=== PATIENT | female | born 1975 | race Caucasian/White ===

== ENCOUNTER → 2023-01-19 | Outpatient (CLI) | payer BC ==
--- NOTE | 2023-01-19 13:50 | USB ---
Reason for Exam: Clinical finding. Risk Values: Danae 5 year model risk: 0.6%. NCI Lifetime model risk: 6.3%. Technique: Method: Whole Breast Handheld. Findings: The whole breast of the left breast, the axilla of the left breast and the retroareolar of the left breast were scanned. There is a complex cyst present at the palpable abnormality 9 cm nipple approximately 3:00 position. This measures 3.7 x 1.9 x 3.7 cm. Multiple internal echoes which are mobile under real-time observation are observed. This does come in close approximation with the implant. However, direct communication could not be visualized. Real-time observation was performed. This does not appear to be in the from the implant. If closer evaluation is required MRI could evaluate. Due to the complex nature and the recent appearance of this structure, consider cyst aspiration for additional evaluation. Overall Assessment: Suspicious, BI-RAD 4 Management: Aspiration of the left breast. A clinical breast exam by your physician is recommended on an annual basis and results should be correlated with mammographic findings. This exam should not preclude additional follow-up of suspicious palpable abnormalities. Results were given to the patient verbally at the time of exam. Electronically signed and approved by: Conrado Bhakta D.O. Radiologis
== END | disposition home or self-care (01) ==
LOC: RADUSWWP 12:57
PROVIDERS: ATTEND Obstetrics & Gynecology
DX: N63.20 Unspecified lump in the left breast, unspecified quadrant (principal); Z98.82 Breast implant status